=== PATIENT | female | born 1960 | race Caucasian/White ===

== ENCOUNTER 2018-07-30 11:57 | Emergency (ER) | payer MEDICAID ==
[~2018-07-30] VITALS: Ht 152.4 cm; Wt 79.8 kg
[2018-07-30 12:01] VITALS: BP_SYST 158
== END 2018-07-30 12:30 | disposition home or self-care (01) ==
LOC: SED 11:57
DX: T16.1XXA Foreign body in right ear, initial encounter (principal); H93.11 Tinnitus, right ear; I10 Essential (primary) hypertension; X58.XXXA Exposure to other specified factors, initial encounter; Y93.89 Activity, other specified; Y92.89 Other specified places as the place of occurrence of the external cause; Y99.8 Other external cause status
CPT/HCPCS: 99282; 99283